=== PATIENT | male | born 1970 | race Caucasian/White ===

== ENCOUNTER 2023-04-27 09:16 | Inpatient (IN) | payer BC ==
[2023-04-27] VITALS (8 sets, daily range): BP systolic 159–198; BP diastolic 92–128; PULSE 65–78; RESP 12–16; O2SAT 95–97
[~2023-04-27] VITALS: Ht 188 cm; Wt 90.3 kg
[2023-04-27 10:00] LABS: BASOPHILS % (AUTO) 0.5 % (0-1); EOSINOPHILS % (AUTO) 1.1 % (0-6); HEMATOCRIT 41.5 % (42.0-52.0); LYMPHOCYTES # (AUTO) 0.4 X10'3 (1.1-4.8); LYMPHOCYTES % (AUTO) 11.5 % (21-51); MEAN CORPUSCULAR HEMOGLOBIN 29.7 PG (27.0-31.0); MEAN CORPUSCULAR HGB CONC 33.7 g/dL (33.0-36.5); MEAN CORPUSCULAR VOLUME 88.3 FL (78-98); MEAN PLATELET VOLUME 7.6 FL (7.4-10.4); MONOCYTES # (AUTO) 0.4 X10'3 (0-0.9); MONOCYTES % (AUTO) 13.6 % (2-12); NEUTROPHILS # (AUTO) 2.3 X10'3 (1.8-7.7); NEUTROPHILS % (AUTO) 73.3 % (42-75); PLATELET COUNT 181 X10'3 (140-440); RED CELL DISTRIBUTION WIDTH 14.5 % (11.5-14.5); WHITE BLOOD COUNT 3.1 X10'3 (4.5-11.0)
[2023-04-27 10:10] LABS: ALBUMIN 3.7 G/DL (3.4-5.0); ANION GAP 6 (8-16); BLOOD UREA NITROGEN 22 MG/DL (7-18); BUN/CREATININE RATIO 15.4 (10.0-20.0); CALCIUM 8.3 MG/DL (8.5-10.1); CHLORIDE 101 MMOL/L (99-107); CREATININE 1.43 MG/DL (0.60-1.10); GLUCOSE 96 MG/DL (70-104); LIPASE 33 U/L (16-77); POTASSIUM 3.4 MMOL/L (3.5-5.1); SODIUM 139 MMOL/L (135-145); TOTAL CARBON DIOXIDE 32.5 MMOL/L (24-32); eCRCL 69 ML/MIN; eGFR 52 ML/MIN
[2023-04-27 10:12] LABS: APTT 29 SECONDS (22-32); INR 0.9 INR; PROTHROMBIN TIME 10.1 SECONDS (9.0-12.0)
[2023-04-27 10:26] LABS: ALANINE AMINOTRANSFERASE 863 U/L (12-78); ALBUMIN 3.7 G/DL (3.4-5.0); ALKALINE PHOSPHATASE 371 IU/L (46-116); ANION GAP 8 (8-16); ASPARTATE AMINO TRANSFERASE 251 U/L (10-37); BILIRUBIN,TOTAL 2.7 MG/DL (0.1-1.0); BLOOD UREA NITROGEN 20 MG/DL (7-18); BUN/CREATININE RATIO 13.3 (10.0-20.0); CALCIUM 8.2 MG/DL (8.5-10.1); CHLORIDE 101 MMOL/L (99-107); GLUCOSE 97 MG/DL (70-104); POTASSIUM 3.4 MMOL/L (3.5-5.1); SODIUM 139 MMOL/L (135-145); TOTAL CARBON DIOXIDE 29.9 MMOL/L (24-32); TOTAL PROTEIN 7.4 G/DL (6.4-8.2); eCRCL 66 ML/MIN; eGFR 49 ML/MIN
[2023-04-27 11:12] LABS: BILIRUBIN,URINE MODERATE (Neg); CLARITY,URINE CLEAR (Clear); COLOR,URINE AMBER (Yellow); GLUCOSE, URINE 100 mg/dl (Neg); KETONES,URINE TRACE mg/dl (Neg); LEUKOCYTE ESTERASE ,URINE NEGATIVE (Neg); OCCULT BLOOD,URINE TRACE-INTACT (Neg); PH,URINE 5.5 (4.8-8.0); PROTEIN,URINE 30 mg/dl (Neg)
[2023-04-27 11:13] LABS: UA COLLECTION TYPE CLN CATCH MIDSTREAM
[2023-04-27 11:17] LABS: NITRITES, URINE NEGATIVE (Neg)
[2023-04-27 11:40] LABS: MUCUS STRANDS MODERATE /LPF (Neg); RBC,URINE 0-2 /HPF (0-2)
[2023-04-27 11:42] LABS: SQUAMOUS EPITHELIAL CELL,UR FEW /LPF (FEW)
[2023-04-27 11:43] LABS: FINE GRANULAR CAST 0-3 /LPF (NEGATIVE)
[2023-04-27 11:49] LABS: COARSE GRANULAR CAST 0-3 /LPF (NEGATIVE)
[2023-04-27 11:50] LABS: TRANSITIONAL EPI CELLS,URINE FEW /HPF
[2023-04-27 11:56] LABS: BACTERIA,URINE FEW /HPF (Neg)
[2023-04-27 11:57] LABS: AMORPHOUS URATES 1+; HYALINE CASTS >30 /LPF (NEGATIVE)
[2023-04-27] MEDS ORDERED: AMLO5TAB4 PO (14:44)
[2023-04-27] MEDS ORDERED: LOSA-415 PO (14:45)
[2023-04-27] MEDS ORDERED: iohexol 300mg/ml 100ml inj. ONE (15:12)
[2023-04-27] MEDS ORDERED: LIDOcaine Viscous 15ml cup ONE (15:12)
[2023-04-27] MEDS ORDERED: levoFLOXACIN-Levaquin 500mg/D5 0 ML IV ONE (15:23)
[2023-04-27] MEDS ORDERED: glucagon, human recombinant 1mg kit ONE (15:23)
[2023-04-27] MEDS ORDERED: diphenhydrAMINE 50 mg/ml inj ONE (15:23)
[2023-04-27] MEDS ORDERED: fentaNYL/PF 50MCG/1 ML 2ML syringe ONE (15:58)
[2023-04-27] MEDS ORDERED: MIDAZolam 1 MG/ML 5ML VIAL ONE (15:58)
[2023-04-27] MEDS ORDERED: morphine 2 MG/ML inj. syringe IV PRN (16:30)
[2023-04-27] MEDS ORDERED: magnesium 4gm in 100ml NS 100 ML IV PRN (16:30)
[2023-04-27] MEDS ORDERED: potassium Cl 40MEQ/1/2NS 520ml 520 ML IV PRN (16:30)
[2023-04-27] MEDS ORDERED: magnesium Cl slow-release 64mg tablet PO PRN (16:30)
[2023-04-27] MEDS ORDERED: magnesium 2GM in 50ml NS 50 ML IV PRN (16:30)
[2023-04-27] MEDS: normal saline 1000ml 1,000 ML IV SCH (18:52)
[2023-04-27] MEDS: K and/or MAG REPLACEMENT MC SCH (20:00)
[2023-04-27] MEDS: amLODIPine 5mg tablet PO ONE (20:14)
[2023-04-27] MEDS: losartan 25mg tablet PO ONE ×2 (20:14→20:57)
[2023-04-27] MEDS: potassium Cl 20 mEq SR tablet PO PRN (20:15)
[2023-04-28] VITALS (17 sets, daily range): BP systolic 148–199; BP diastolic 90–128; PULSE 59–92; RESP 11–20; TEMP 97.3–97.8; O2SAT 94–100
[2023-04-28 06:46] LABS: BASOPHILS % (AUTO) 0.7 % (0-1); EOSINOPHILS % (AUTO) 1.4 % (0-6); HEMATOCRIT 37.1 % (42.0-52.0); HEMOGLOBIN 12.5 g/dl (14.0-17.9); LYMPHOCYTES # (AUTO) 0.6 X10'3 (1.1-4.8); LYMPHOCYTES % (AUTO) 20.1 % (21-51); MEAN CORPUSCULAR HEMOGLOBIN 29.9 PG (27.0-31.0); MEAN CORPUSCULAR HGB CONC 33.8 g/dL (33.0-36.5); MEAN CORPUSCULAR VOLUME 88.5 FL (78-98); MEAN PLATELET VOLUME 7.9 FL (7.4-10.4); MONOCYTES # (AUTO) 0.4 X10'3 (0-0.9); MONOCYTES % (AUTO) 12.3 % (2-12); NEUTROPHILS # (AUTO) 1.9 X10'3 (1.8-7.7); NEUTROPHILS % (AUTO) 65.5 % (42-75); PLATELET COUNT 171 X10'3 (140-440); RED CELL DISTRIBUTION WIDTH 14.3 % (11.5-14.5); WHITE BLOOD COUNT 2.9 X10'3 (4.5-11.0)
[2023-04-28 07:10] LABS: ANION GAP 3 (8-16); BLOOD UREA NITROGEN 20 MG/DL (7-18); BUN/CREATININE RATIO 15.4 (10.0-20.0); CALCIUM 7.5 MG/DL (8.5-10.1); CHLORIDE 107 MMOL/L (99-107); GLUCOSE 92 MG/DL (70-104); MAGNESIUM 1.7 MG/DL (1.5-2.4); POTASSIUM 3.4 MMOL/L (3.5-5.1); SODIUM 143 MMOL/L (135-145); TOTAL CARBON DIOXIDE 33.5 MMOL/L (24-32); eCRCL 76 ML/MIN; eGFR 58 ML/MIN
[2023-04-28 07:37] LABS: PLATELET ESTIMATE NORMAL; TOTAL CELLS COUNTED 100
[2023-04-28] MEDS: piperacillin/tazo 4.5gm/100ml 100 ML IV SCH (08:50)
[2023-04-28 09:10] LABS: ALANINE AMINOTRANSFERASE 676 U/L (12-78); ALKALINE PHOSPHATASE 288 IU/L (46-116); ASPARTATE AMINO TRANSFERASE 171 U/L (10-37); BILIRUBIN,DIRECT 0.9 MG/DL (0-0.3); BILIRUBIN,TOTAL 1.7 MG/DL (0.1-1.0); TOTAL PROTEIN 6.1 G/DL (6.4-8.2)
[2023-04-28] MEDS: INDOCYANINE GREEN 25 MG/10 ML VIAL IV ONE (10:19)
[2023-04-28] MEDS ORDERED: LIDOcaine 1% (10mg/ml)w/preservative inj. 20ml MDV ONE (11:26)
[2023-04-28] MEDS ORDERED: BUPIVAcaine 2.5mg/ml inj 50ml vial (contains preservative) ONE (11:26)
[2023-04-28] MEDS ORDERED: propofol inj 20 ML IV ONE (12:07)
[2023-04-28] MEDS ORDERED: midazolam 1 mg/ML 2ml injection ONE (12:07)
[2023-04-28] MEDS ORDERED: fentaNYL/PF 50MCG/1 ML 2ML syringe ONE (12:07)
[2023-04-28] MEDS ORDERED: rocuronium 10mg/ml inj IV ONE (12:08)
[2023-04-28] MEDS ORDERED: meperidine/PF 25mg/ml syringe IV PRN ×2 (12:20)
[2023-04-28] MEDS ORDERED: ondansetron/PF 4mg/2ml inj IV PRN (12:20)
[2023-04-28] MEDS ORDERED: enalaprilat dihydrate 2.5mg/2ml vial IV PRN (12:20)
[2023-04-28] MEDS ORDERED: proCHLORperazine 10 MG/2 ml inj IV PRN (12:20)
[2023-04-28] MEDS ORDERED: morphine 2 MG/ML inj. syringe IV PRN (12:20)
[2023-04-28] MEDS ORDERED: glycopyrrolate 0.2mg/ml inj ONE (12:21)
[2023-04-28] MEDS ORDERED: sevoflurane 250ml liquid IH ONE (12:21)
[2023-04-28] MEDS ORDERED: dexamethasone sod phosphate 10mg/ml inj ONE (12:21)
[2023-04-28] MEDS ORDERED: ceFAZolin 1000mg inj ONE ×2 (12:42)
[2023-04-28] MEDS: BUPIVAcaine/PF 2.5mg/ml (0.25%) 10ml vial ONE (12:58)
[2023-04-28] MEDS: LIDOcaine 1% 30ml preserv. free vial ONE (12:59)
[2023-04-28] MEDS ORDERED: neostigmine methylsulfate 1 MG/ML 10ml vial ONE (13:31)
[2023-04-28] MEDS ORDERED: ondansetron/PF 4mg/2ml inj ONE (13:31)
[2023-04-28] MEDS ORDERED: HYDROcodone/acetaminophen 10/325mg tab PO PRN (14:00)
[2023-04-28] MEDS ORDERED: naloxone 0.4 mg/ml inj IV PRN (14:00)
[2023-04-28] MEDS: labetalol 20mg/4ml (5mg/ml) syringe IV PRN (14:08)
[2023-04-28] MEDS: meperidine/PF 25mg/ml syringe IV PRN (14:11)
[2023-04-28] MEDS: morphine 4 MG/ML inj SYRINge IV PRN (14:30)
[2023-04-28] MEDS: HYDROcodone/acetaminophen 5mg/325mg tablet PO PRN (15:21)
[2023-04-28] MEDS: ringers solution, lacted 1,000 ML IV SCH (15:43)
[2023-04-28] MEDS: amLODIPine 5mg tablet PO STA (16:51)
[2023-04-28] MEDS ORDERED: oxyCODONE IR 5mg (immed. release) tablet PO PRN ×2 (17:00)
[2023-04-28] MEDS: oxyCODONE IR 5mg (immed. release) tablet PO PRN (17:24)
[2023-04-28] MEDS: potassium Cl 20 mEq SR tablet PO PRN (20:17)
[2023-04-28] MEDS: hydrALAZINE 20mg/ml inj. IV PRN (20:18)
[2023-04-29] VITALS: BP 169/108; PULSE 105; RESP 12; O2SAT 94
[2023-04-29 04:00] VITALS: BP_SYST 134; BP_SYST 173; BP_DIAS 101; BP_DIAS 76; PULSE 85; RESP 16; O2SAT 98
[2023-04-29 06:00] VITALS: BP 134/74; PULSE 68; RESP 12; TEMP 97.4; O2SAT 95
[2023-04-29 07:19] LABS: BASOPHILS % (AUTO) 0 % (0-1); EOSINOPHILS % (AUTO) 0 % (0-6); HEMATOCRIT 39.9 % (42.0-52.0); HEMOGLOBIN 13.3 g/dl (14.0-17.9); LYMPHOCYTES # (AUTO) 0.4 X10'3 (1.1-4.8); LYMPHOCYTES % (AUTO) 4.5 % (21-51); MEAN CORPUSCULAR HEMOGLOBIN 29.9 PG (27.0-31.0); MEAN CORPUSCULAR HGB CONC 33.5 g/dL (33.0-36.5); MEAN CORPUSCULAR VOLUME 89.4 FL (78-98); MEAN PLATELET VOLUME 8.3 FL (7.4-10.4); MONOCYTES # (AUTO) 0.7 X10'3 (0-0.9); NEUTROPHILS # (AUTO) 8.8 X10'3 (1.8-7.7); NEUTROPHILS % (AUTO) 88.5 % (42-75); PLATELET COUNT 200 X10'3 (140-440); RED BLOOD COUNT 4.46 X10'6 (4.70-6.10); WHITE BLOOD COUNT 9.9 X10'3 (4.5-11.0)
[2023-04-29 07:46] LABS: ALANINE AMINOTRANSFERASE 517 U/L (12-78); ALBUMIN 3.2 G/DL (3.4-5.0); ALBUMIN/GLOBULIN RATIO 0.9 (1.1-1.5); ALKALINE PHOSPHATASE 267 IU/L (46-116); ANION GAP 3 (8-16); ASPARTATE AMINO TRANSFERASE 118 U/L (10-37); BILIRUBIN,TOTAL 1.2 MG/DL (0.1-1.0); BLOOD UREA NITROGEN 21 MG/DL (7-18); BUN/CREATININE RATIO 14.4 (10.0-20.0); CALCIUM 8.3 MG/DL (8.5-10.1); CHLORIDE 103 MMOL/L (99-107); CREATININE 1.46 MG/DL (0.60-1.10); GLUCOSE 162 MG/DL (70-104); MAGNESIUM 1.8 MG/DL (1.5-2.4); POTASSIUM 3.5 MMOL/L (3.5-5.1); SODIUM 141 MMOL/L (135-145); TOTAL CARBON DIOXIDE 35.3 MMOL/L (24-32); TOTAL PROTEIN 6.9 G/DL (6.4-8.2); eCRCL 68 ML/MIN; eGFR 51 ML/MIN
[2023-04-29 10:00] VITALS: BP 149/94; PULSE 80; RESP 20; TEMP 97.7; O2SAT 96
[2023-04-29] MEDS ORDERED: HYDR50TA46 PO (10:24)
== END 2023-04-29 12:10 | disposition home or self-care (01) | DRG 418 ==
LOC: ER 09:16 → ED HOLD 16:30 → EDBEDREQ 20:36 → ORTHO 4S 04-28 07:40
PROVIDERS: ADMIT Internal Medicine; ATTEND Internal Medicine
PROC: CF1C1ZZ Planar Nuclear Medicine Imaging of Hepatobiliary System, All using Technetium 99m (Tc-99m) (ICD-10-PCS; 2023-04-27)
PROC: 0F798ZZ Dilation of Common Bile Duct, Via Natural or Artificial Opening Endoscopic (ICD-10-PCS; 2023-04-27)
PROC: 0FC98ZZ Extirpation of Matter from Common Bile Duct, Via Natural or Artificial Opening Endoscopic (ICD-10-PCS; 2023-04-27)
PROC: 0WQF4ZZ Repair Abdominal Wall, Percutaneous Endoscopic Approach (ICD-10-PCS; 2023-04-28)
PROC: 8E0W4CZ Robotic Assisted Procedure of Trunk Region, Percutaneous Endoscopic Approach (ICD-10-PCS; 2023-04-28)
PROC: BF53200 Other Imaging of Gallbladder and Bile Ducts using Fluorescing Agent, Indocyanine Green Dye, Intraoperative (ICD-10-PCS; 2023-04-28)
PROC: 0FT44ZZ Resection of Gallbladder, Percutaneous Endoscopic Approach (ICD-10-PCS; principal; 2023-04-28 12:21)
DX: K80.67 Calculus of gallbladder and bile duct with acute and chronic cholecystitis with obstruction (principal); N17.9 Acute kidney failure, unspecified; E78.5 Hyperlipidemia, unspecified; K42.9 Umbilical hernia without obstruction or gangrene; E87.6 Hypokalemia; I12.9 Hypertensive chronic kidney disease with stage 1 through stage 4 chronic kidney disease, or unspecified chronic kidney disease; N18.9 Chronic kidney disease, unspecified; Z79.899 Other long term (current) drug therapy
CPT/HCPCS: 43262; 43264; 99285; Z7506; Z7508; 36415; 76700; 78226; 80048; 80053; 80076; 81001; 82948; 83690; 83735; 85007; 85025; 85610; 85730; 87081; 87088; 93975; 99152; 99153; A4215; A4615; A4618; A4620; A7000; A9537; C1769; G0378; J0360; J0690; J1100; J1200; J1610; J1956; J2175; J2250; J2270; J2405; J2543; J2704; J2710; J3010; J3490; J7030; J7120; Q9967